=== PATIENT | male | born 1940 | race Caucasian/White ===

== ENCOUNTER 2017-12-23 10:00 | Day surgery (SDC) | payer OTHER, MEDICARE ==
--- NOTE | 2017-12-13 09:14 | GHP ---
DATE OF ADMISSION: 12/23/2017 DATE OF SURGERY: 12/23 as an outpatient. HISTORY: The patient is a 73-year-old white male who underwent repair of a right direct and indirect inguinal hernia 3 years ago. At that time, there was no evidence of a left inguinal hernia. Approximately 1 month ago, he noticed a left inguinal bulge. He has worn a truss in the interim [place] , but wishes to have his hernia repaired. He does not have a chronic cough. His prostatism is limited to minimal terminal dribbling is a nonsmoker. His hernia has always been easily reducible. ALLERGIES: He has no known drug allergies. SOCIAL HISTORY: He is a non-smoker and he drinks approximately 1/2 to 1 glass of wine per day and up to 1 beer per week. MEDICATION: He does not currently take any medications. PAST SURGICAL HISTORY: Prior surgeries have included a right ACL, a tonsillectomy. He had his right tongue biopsied (benign) 3 years ago. He has had a right rotator cuff repair. He lost his left thumb to a table saw accident. The stump of the thumb was first buried in his left abdominal wall and reconstructed with bone from his right iliac crest and skin from his left abdominal wall. A tuft of skin from his tip of his middle finger was tunneled through his palm to the tip of the ning-thumb to provide sensation. He had a left sebaceous cyst removed from his right neck. His last colonoscopy was 3 years ago. PAST MEDICAL HISTORY: He has no history of rheumatic fever or hepatitis. He has not had transfusions. When he returned from the [place] in his 20s, he was told his chest x-ray indicated that he possibly had had TB. He was never skin tested or treated, and he is felt to be asymptomatic at this time. He has several dental crowns. 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 Interestingly, when he was in his 20s, he had an unusual sore on his oral mucosa, and he was subsequently diagnosed as having scurvy which was treated and resolved. REVIEW OF SYSTEMS: Otherwise quite negative. Note is made that when he took 2 Percocet after rotator cuff surgery, he ended up passing out. That happened subsequently within the same 2 week period after his rotator cuff surgery with a second dose. Review of systems, otherwise, shows that he had a reaction to a melon he ate in [place], which gave him an orange red flushing. He is nearsighted. He is quite physically active. He has not had any steroids in the last 6 months. Specifically, he has no dyspnea on exertion. PHYSICAL EXAMINATION: VITAL SIGNS: Blood pressure was 130/85, which was high for him. Heart rate 60. GENERAL: He is awake, alert, and oriented. He is quite pleasant. NEUROLOGIC: He has a normal gait, normal speech pattern. There are no motor or sensory defects. There are no focal lateralizing neurologic defects. HEAD/NECK: Skull is atraumatic. His corneas are clear. Extraocular movements are intact. ENT shows a slight gumline recession. Neck has full range of motion. No bruits. There is no lymphadenopathy. The thyroid is not enlarged. CHEST: Examination shows the back that was unremarkable. LUNGS: Clear to auscultation. CARDIOVASCULAR: A normal capillary refill and a regular rate and rhythm. He has normal heart tones. I do not detect any gallops, murmurs, or thrills. ABDOMEN: Soft and nontender without guarding or rebound. There is no mass identified. His aorta is normal to palpation. He does have a left inguinal hernia, which is easily reducible with no evidence of a right inguinal hernia. RECTAL: Examination was not performed at this point. SKIN: [place] and normal. LYMPHATIC: There is no cervical, supraclavicular, axillary, or inguinal lymphadenopathy. LABORATORY DATA: Recent laboratory data is reviewed. Cholesterol was 202 with HDL of 160, and triglycerides of 101. BUN was 26, creatinine was 0.93. Bilirubin was 1.7 with direct of 0.3, which is a chronic finding for him. His AST, LDH, and gamma GT were all normal. His AST was elevated at 54.4. His PSA is 0.85. IMPRESSION/PLAN: He has a new left inguinal hernia and has done well with the prior laparoscopic preperitoneal repair of his right inguinal hernia. He is an Citizen Of [place] [employer] risk level 1. I plan to attempt a laparoscopic preperitoneal repair of his left inguinal hernia. This may be precluded by scarring of the preperitoneal space from his prior procedure. He understands that and realizes that there is a possibility that I may have to perform an open repair of his hernia. As he is from out of town, he will plan to stay locally for several days postoperatively. /[id number]/MODL MTDD
[2017-12-23] MEDS ORDERED: LR 1,000 ML IV ONE (10:10)
[2017-12-23] MEDS ORDERED: ceFAZolin 2 GM/DEXTROSE 100 ML IV ONE (10:41)
[2017-12-23] MEDS ORDERED: KETOROLAC 30 MG/1 ML SDV IVP ONE (13:48)
[2017-12-23] MEDS ORDERED: HYDROmorphONE/DILAUDID 1 MG/ML INJ IVP PRN (13:48)
[2017-12-23] MEDS ORDERED: ACETAMINOPHEN 500 MG TAB PO ONE (13:48)
--- NOTE | 2017-12-23 14:14 | PDANEPAE ---
ANE History of Present Illness Ing hernia ANE Past Medical History - Cardiovascular History Hx Hypertension: No Hx Arrhythmias: No Hx Chest Pain: No Hx Coronary Artery / Peripheral Vascular Disease: No Hx CHF / Valvular Disease: No Hx Palpitations: No - Pulmonary History Hx COPD: No Hx Asthma/Reactive Airway Disease: No Hx Recent Upper Respiratory Infection: No Hx Oxygen in Use at Home: No Hx Sleep Apnea: No Sleep Apnea Screening Result - Last Documented: Negative - Neurologic History Hx Cerebrovascular Accident: No Hx Seizures: No Hx Dementia: No - Endocrine History Hx Diabetes: No - Renal History Hx Renal Disorders: No - Liver History Hx Hepatic Disorders: No - Neurological & Psychiatric Hx Hx Neurological and Psychiatric Disorders: No - Cancer History Hx Cancer: No - Congenital Disorder History Hx Congenital Disorders: No - GI History Hx Gastrointestinal Disorders: No - Other Health History Other Health History: none - Chronic Pain History Chronic Pain: Yes - Surgical History Prior Surgeries: rotator cuff repair, right. ACL repair, right. hernia repair , right ANE Review of Systems Review of Systems: - Exercise capacity METS (RN): 6 METS ANE Patient History - Allergies Allergies/Adverse Reactions: oxycodone [From Percocet] Allergy (Verified 11/25/17 10:15) "I black out" - Home Medications Home medications: home medication list seen and reviewed Home Medications: NK [No Known Home Meds] 11/23/17 [Last Taken Unknown] - NPO status NPO Status: no food or drink >8 hours NPO Since - Liquids (Date): 12/23/17 NPO Since - Liquids (Time): 12:00 NPO Since - Solids (Date): 12/22/17 NPO Since - Solids (Time): 20:00 - Anes Hx Anes Hx: no prior problems - Smoking Hx Smoking Status: Never smoked - Family Anes Hx Family Hx Anesthesia Complications: none ANE Labs/Vital Signs - Vital Signs Blood Pressure: 101/69 Heart Rate: 57 Respiratory Rate: 16 O2 Sat (%): 97 Height: 180.34 cm Weight: 71.668 kg ANE Physical Exam - Airway Neck exam: FROM Mallampati Score: Class 2 Mouth exam: normal dental/mouth exam - Pulmonary Pulmonary: no respiratory distress - Cardiovascular Cardiovascular: regular rate and rhythym - ASA Status ASA Status: II ANE Anesthesia Plan Anesthesia Plan: general endotracheal anesthesia
--- NOTE | 2017-12-23 14:16 | SOAPPROG ---
[facility] Progress Note Assessment/Plan: 12/23/17 14:13 Assessment: Interval update: no changes noted Plan: Laparoscopic (possibly open) hernia repair Objective: Vital Signs Temp Pulse Resp BP Pulse Ox 36.6 C 57 L 16 101/69 97 12/23/17 12:02 12/23/17 12:02 12/23/17 12:02 12/23/17 12:02 12/23/17 12:02 ICD10 Worksheet Patient Problems: Problems Problem Status Onset Inguinal hernia Acute - ICD10 Problem Qualifiers (1) Inguinal hernia Qualifiers: Laterality: unilateral
[2017-12-23] MEDS ORDERED: fentaNYL 100 MCG/2 ML INJ ONE ×2 (14:18→15:36)
[2017-12-23] MEDS ORDERED: PROPOFOL 200 MG/20 ML VIAL ONE (14:18)
[2017-12-23] MEDS ORDERED: ROCURONIUM 50 MG/5 ML VIAL ONE (14:19)
[2017-12-23] MEDS ORDERED: LIDOCAINE 2% 5 ML SDV ONE (14:20)
[2017-12-23] MEDS ORDERED: BUPIVACAINE 0.25% 10 ML SDV ONE (14:24)
[2017-12-23] MEDS ORDERED: ceFAZolin 1 GM/5 ML SYR ONE (14:25)
[2017-12-23] MEDS ORDERED: HEPARIN 5,000 UNIT/0.5 ML INJ ONE ×2 (14:25→14:26)
[2017-12-23] MEDS ORDERED: HEPARIN 1000 UNIT/1 ML MDV ONE (14:27)
[2017-12-23] MEDS ORDERED: PHENYLEPHRINE HCL 100 MCG/ML SYR ONE ×2 (14:34)
[2017-12-23] MEDS ORDERED: KETOROLAC 30 MG/1 ML SDV ONE (14:35)
[2017-12-23] MEDS ORDERED: ONDANSETRON 4 MG/2 ML VIAL ONE (14:35)
[2017-12-23] MEDS ORDERED: DEXAMETHASONE 4 MG/ML VIAL ONE (14:36)
[2017-12-23] MEDS ORDERED: ONDANSETRON 4 MG/2 ML VIAL IVP PRN (14:41)
[2017-12-23] MEDS ORDERED: HYDROmorphONE/DILAUDID 2 MG/ML INJ IVP PRN (14:41)
[2017-12-23] MEDS ORDERED: fentaNYL 100 MCG/2 ML INJ IVP PRN (14:41)
[2017-12-23] MEDS ORDERED: PROMETHAZINE HCL 25 MG/ML INJ IVP PRN (14:41)
[2017-12-23] MEDS ORDERED: NALOXONE HCL 0.4 MG/ML INJ IVP PRN (14:41)
[2017-12-23] MEDS ORDERED: SUGAMMADEX SODIUM 200 MG/2 ML VIAL IVP ONE (15:56)
[2017-12-23] MEDS ORDERED: DESFLURANE 240 ML BOTTLE IH ONE (16:07)
--- NOTE | 2017-12-23 16:27 | POSTOPPROG ---
Post Op Note Date of Operation: 12/23/17 Surgeon: Salinas Parker Anesthesia: GET(General Endotracheal) Pre-op Diagnosis: Left inguinal hernia Post-op Diagnosis: Left indirect inguinal hernia Indication: Left inguinal hernia Procedure: Bassini type open repair of left inguinal hernia Findings: Left indirect inguinal hernia Inf/Abcess present in the surg proc area at time of surgery?: No EBL: Minimal Total fluids administered: 800 Complications: Unable to proceed with TEP laparoscopic repair due to prior surgery Specimen(s): none
--- NOTE | 2017-12-23 16:36 | POSTANESTH ---
Post Anesthetic Evaluation Cardiovascular Status: Similar to Pre-Op Cond Respiratory Status: Similar to Pre-op Cond. Level of Consciousness/Mental Status: Alert and Oriented Pain Control: Adequate, Prn Tx Ordered Nausea/Vomiting Control: Adequate, Prn Tx Ordered Complications Possibly Related to Anesthesia: None Noted
[2017-12-23] MEDS ORDERED: ACETAMINOPHEN 500 MG TAB ONE (16:46)
[2017-12-23 20:17] VITALS: BP 130/79
--- NOTE | 2017-12-23 21:25 | GOP ---
DATE OF OPERATION: 12/23/2017 SURGEON: Salinas Parker MD PREOPERATIVE DIAGNOSIS: Left inguinal hernia status post TEP repair of right direct and indirect inguinal hernias 3 years prior. POSTOPERATIVE DIAGNOSIS: Left indirect inguinal hernia. PROCEDURE PERFORMED: Open Bassini-type repair of left indirect inguinal hernia. FINDINGS: Left indirect inguinal hernia. SPECIMENS: None. ESTIMATED BLOOD LOSS: Minimal. INDICATIONS: Left inguinal hernia status post TEP repair of right direct and indirect inguinal hernias 3 years prior. COMPLICATIONS: Inability to proceed with a total extraperitoneal repair due to scarring from prior right inguinal total extraperitoneal repair. FLUIDS ADMINISTERED: 800cc DESCRIPTION OF PROCEDURE: The patient was placed on the operating table in supine position. After induction of adequate general endotracheal anesthesia, the patient was carefully clipped, prepped, and draped. He was draped so that either a laparoscopic or an open procedure could be performed. A surgical time-out was carried out and agreed to by all members of the operative team. A curvilinear incision was made in his prior infraumbilical scar. Incision was deepened with Bovie electrocautery and a spreading technique to expose the right anterior rectus sheath. This was incised transversely. Rectus muscle was carefully elevated anteriorly and laterally. The balloon-dissecting system was inserted into the preperitoneal space with some difficulty, presumably due to the peritoneal prior scarring to the rectus muscle due to prior balloon dissection. The balloon was inflated, and the peritoneum opened completely. After putting the shorter balloon system in place, it became quite apparent that , as suspected, The peritoneum had been disrupted. Because of the scarring, I opted not to try to do a transabdominal preperitoneal approach as I felt that would be more challenging. The pneumoperitoneum was evacuated. The port was removed. The surface markings of the pubic tubercle in the anterior superior iliac spine were identified. At a point shelter between them, a transverse incision was planned in the skin lines. The skin was sharply incised. Dissection was continued with Bovie electrocautery. Weitlaner was used to elevate the subcutaneous tissue to help with the dissection down to the aponeurosis of the external oblique. Hemostasis was excellent. The aponeurosis external oblique was carefully cleared and using a Berger retractor, I was able to see the internal ring. The aponeurosis of the external oblique was incised. The incision was extended medially and laterally with Metzenbaum scissors using a push (not a cutting) technique. The ilioinguinal nerve was easily identified and carefully dissected free of all attachments. It was re-located above the superior flap of the external oblique fascia. Two mosquito clamps were placed on the fascial edge and rotated superiorly, successfully trapping the nerve and keeping it out of harm' s way. 2 mosquito clamps were placed on the inferior flap. Careful dissection was carried out to free the cord and cord structures from the inguinal canal. Once this was done, the inguinal canal was carefully inspected. The floor was firm and intact. The internal ring was enlarged. The cord was carefully dissected to free the sac from the cord down to an area just above the internal ring ( which I dissected with gentle traction). The sac was carefully twisted and transfixed with a 2-0 Prolene suture. The sac was divided distal to the fixation suture and discarded. Using the suture of the tie in the sack, I secured the sac to the undersurface of the internal oblique musculature. The cord was now skeletonized. Bassini-type repair was carried out with the goal of tightening up the internal ring. Starting medially with a 2-0 Prolene at the level of the pubic tubercle and running the shelving border of the ilioinguinal ligament to the transversalis fascia and approximating it throughout its length, I was able to reduce the internal ring so it admitted just the tip of the finger. The suture was run back medially and tied at the pubic tubercle. The wound was well irrigated. The cord was replaced into the canal. The external oblique was closed in a running suture of #3-0 Prolene after the ilioinguinal nerve had been replaced in the canal. Subfascial injection of 10 cc of approximately 0.1% Marcaine was carried out. Interrupted sutures of 3-0 Vicryl were placed both in [place] fascia and in the dermis. A running subcuticular suture of 5-0 PDS was used. At the level of the umbilicus, the anterior rectus sheath defect was closed with a [id number] suture of #0 PDS. That wound was irrigated as well. The skin was closed with interrupted sutures of #4-0 Vicryl. Local anesthesia was injected along the inguinal skin incision. A running subcuticular suture of #4-0 PDS was placed. Mastisol and Steri-Strips were placed to both sites. Sterile dressings were applied. The patient was transferred to recovery in stable and satisfactory condition. /[id number]/MODL MTDD
== END 2017-12-23 18:52 | disposition home or self-care (01) ==
LOC: FSGY 10:00 → F3E 10:00 → UNDOADMIN 10:00 → EDSTATUS 12:30 → UNDODISIN 18:52 → FSGY 18:52
PROVIDERS: ATTEND Surgery
PROC: 0YQ60ZZ Repair Left Inguinal Region, Open Approach (ICD-10-PCS; principal; 2017-12-23 13:00)
DX: K40.90 Unilateral inguinal hernia, without obstruction or gangrene, not specified as recurrent (principal)
CPT/HCPCS: J0690; J1100; J1644; J1885; J2370; J2405; J2704; J3010